=== PATIENT | male | born 1950 | race Caucasian/White ===

== ENCOUNTER 2019-06-27 20:03 | Inpatient (IN) ==
[2019-06-27] MEDS ORDERED: ONDANSETRON 4 MG/2 ML VIAL IV STA (20:29)
[2019-06-27] MEDS ORDERED: methylPREDNISolone SOD SUC 125 MG/2 ML VIAL IV STA (20:29)
[2019-06-27] MEDS ORDERED: VANCOMYCIN INJ 1,250 MG in SODIUM CHLORIDE 0.9% 250 ML IV STA (20:29)
[2019-06-27] MEDS ORDERED: ALBUTEROL 2.5 MG/3 ML NEB RESP TX SCH (20:30)
[2019-06-27 20:52] LABS: Basophils # 0.1 10*3/uL (0.0-0.2); Basophils % 0.6 % (0.0-0.8); Eosinophils # 0.1 10*3/uL (0.0-0.87); Hematocrit 36.8 VOL% (42.0-52.0); Hemoglobin 12.5 GM/DL (14.0-18.0); Immature Granulocytes % 3.4 %; Immature Granulocytes Absolute 0.45 #; Lymphocytes # 1.3 10*3/uL (1.4-4.0); Lymphocytes % 9.9 % (21.2-54.2); Mean Corpuscular Volume 88.5 FL (87-102); Mean Platelet Volume 9.7 FL (9.6-12.0); Neutrophils % 74.1 % (38.7-73.9); Platelet Count 360 T/CUMM (130-400); Red Blood Count 4.16 MC/CUMM (3.8-5.5); Red Cell Distribution Width 13.6 % (9.3-17.3); White Blood Count 13.4 T/CUMM (4-12)
[2019-06-27 21:04] LABS: INR 1.1; Partial Thromboplastin Time 27.9 SECS (20.8-36.0)
[2019-06-27 21:22] LABS: Albumin 1.8 G/DL (3.4-5.0); Bilirubin,Total 1.4 MG/DL (0.2-1.0); Calcium 8.2 MG/DL (8.5-10.1); Osmolality,Calculated 248.6 MOS/KG (273-304); Total Protein 5.1 G/DL (6.4-8.3); Troponin I < 0.015 NG/ML (0.00-0.045)
[2019-06-27 22:06] LABS: Apearance,Urine CLEAR (Clear); Bacteria,Urine Occasional /HPF (Few); Bilirubin,Urine Negative (Negative); Blood, Urine Negative (Negative); Glucose,Urine (UA) Negative (Negative); Ketones,Urine Negative (Negative); Nitrite,Urine Negative (Negative); Protein,Urine Negative; RBC,Urine 3 /HPF (0-4); Urine Color Yellow (Yellow); Urine Specific Gravity 1.009 (1.001-1.035); WBC,Urine 4 /HPF (0-6)
[2019-06-27] MEDS ORDERED: NICOTINE 21 MG/24 HR PATCH TRANSDERM PRN (22:10)
[2019-06-27] MEDS ORDERED: ACETAMINOPHEN 325 MG TABLET PO PRN (22:10)
[2019-06-27] MEDS ORDERED: BISACODYL 5 MG TABLET PO PRN (22:10)
[2019-06-27] MEDS ORDERED: MORPHINE 4 MG/1 ML VIAL IV PRN (22:10)
[2019-06-27] MEDS ORDERED: ONDANSETRON 4 MG/2 ML VIAL IV PRN (22:10)
[2019-06-27] MEDS ORDERED: INFLUENZA VIRUS VACCINE 0.5 ML SYRINGE IM ONE (23:46)
[2019-06-27] MEDS ORDERED: PNEUMOCOCCAL VACCINE (13 VALENT) 0.5 ML SYRINGE IM ONE (23:52)
[2019-06-28] MEDS: SODIUM CHLORIDE 0.9% 1,000 ML IV SCH ×3 (00:26→18:52)
[2019-06-28] MEDS: AZITHROMYCIN INJ 500 MG in SODIUM CHLORIDE 0.9% 250 ML IV SCH ×2 (00:27→23:58)
[2019-06-28] MEDS: ALBUTEROL/IPRATROPIUM 3 ML NEB RESP TX SCH ×4 (01:32→19:35)
[2019-06-28] MEDS: MEROPENEM 500 MG in SODIUM CHLORIDE 0.9% 100 ML IV SCH ×4 (02:07→20:14)
[2019-06-28 05:24] LABS: Albumin 1.8 G/DL (3.4-5.0); Bilirubin,Total 1.3 MG/DL (0.2-1.0); Osmolality,Calculated 263.7 MOS/KG (273-304)
[2019-06-28] MEDS: METOPROLOL TARTRATE 50 MG TABLET PO SCH ×3 (09:07→21:27)
[2019-06-28] MEDS: VALSARTAN/HCTZ 160-12.5 MG TABLET PO SCH ×2 (09:07→13:36)
[2019-06-28] MEDS: PANTOPRAZOLE 40 MG TABLET PO SCH (09:07)
[2019-06-28] MEDS: VANCOMYCIN INJ 1,500 MG in SODIUM CHLORIDE 0.9% 500 ML IV SCH ×2 (09:13→21:05)
[2019-06-28] MEDS: methylPREDNISolone SOD SUC 40 MG/1 ML VIAL IV SCH ×2 (12:15→20:11)
[2019-06-28] MEDS: BACLOFEN 10 MG TABLET PO PRN (17:18)
[2019-06-28] MEDS ORDERED: chlorproMAZINE 25 MG TABLET PO ONE (22:02)
[2019-06-29] MEDS: ALBUTEROL/IPRATROPIUM 3 ML NEB RESP TX SCH ×5 (00:42→19:32)
[2019-06-29] MEDS: methylPREDNISolone SOD SUC 40 MG/1 ML VIAL IV SCH ×4 (02:29→23:15)
[2019-06-29] MEDS: MEROPENEM 500 MG in SODIUM CHLORIDE 0.9% 100 ML IV SCH ×4 (02:31→21:37)
[2019-06-29] MEDS: SODIUM CHLORIDE 0.9% 1,000 ML IV SCH (03:08)
[2019-06-29] MEDS ORDERED: chlorproMAZINE 25 MG TABLET PO PRN (08:25)
[2019-06-29] MEDS: PANTOPRAZOLE 40 MG TABLET PO SCH (09:01)
[2019-06-29] MEDS: VALSARTAN/HCTZ 160-12.5 MG TABLET PO SCH (09:01)
[2019-06-29] MEDS: METOPROLOL TARTRATE 50 MG TABLET PO SCH ×2 (09:01→21:37)
[2019-06-29] MEDS ORDERED: FUROSEMIDE 40 MG/4 ML VIAL IV ONE (11:05)
[2019-06-29] MEDS: VANCOMYCIN INJ 1,500 MG in SODIUM CHLORIDE 0.9% 500 ML IV SCH ×2 (13:13→21:08)
[2019-06-29] MEDS ORDERED: methylPREDNISolone SOD SUC 40 MG/1 ML VIAL IV SCH (15:00)
[2019-06-30] MEDS: AZITHROMYCIN INJ 500 MG in SODIUM CHLORIDE 0.9% 250 ML IV SCH (00:53)
[2019-06-30] MEDS: ALBUTEROL/IPRATROPIUM 3 ML NEB RESP TX SCH ×6 (03:01→23:00)
[2019-06-30] MEDS: MEROPENEM 500 MG in SODIUM CHLORIDE 0.9% 100 ML IV SCH ×4 (03:08→21:23)
[2019-06-30] MEDS: methylPREDNISolone SOD SUC 40 MG/1 ML VIAL IV SCH ×4 (05:50→23:33)
[2019-06-30 07:41] LABS: Calcium 8.9 MG/DL (8.5-10.1); Osmolality,Calculated 268.2 MOS/KG (273-304)
[2019-06-30] MEDS: SODIUM CHLORIDE 0.9% 1,000 ML IV SCH (08:26)
[2019-06-30] MEDS: VANCOMYCIN INJ 1,500 MG in SODIUM CHLORIDE 0.9% 500 ML IV SCH (08:53)
[2019-06-30] MEDS: VALSARTAN/HCTZ 160-12.5 MG TABLET PO SCH (08:59)
[2019-06-30] MEDS: METOPROLOL TARTRATE 50 MG TABLET PO SCH ×2 (08:59→21:24)
[2019-06-30] MEDS: PANTOPRAZOLE 40 MG TABLET PO SCH (08:59)
[2019-06-30] MEDS: chlorproMAZINE 25 MG TABLET PO PRN (18:14)
[2019-07-01] MEDS: AZITHROMYCIN INJ 500 MG in SODIUM CHLORIDE 0.9% 250 ML IV SCH ×2 (02:28→03:30)
[2019-07-01] MEDS: ALBUTEROL/IPRATROPIUM 3 ML NEB RESP TX SCH ×5 (03:00→20:38)
[2019-07-01] MEDS: MEROPENEM 500 MG in SODIUM CHLORIDE 0.9% 100 ML IV SCH ×4 (03:31→21:16)
[2019-07-01] MEDS: VANCOMYCIN INJ 1,500 MG in SODIUM CHLORIDE 0.9% 500 ML IV SCH ×2 (04:07→22:05)
[2019-07-01] MEDS: methylPREDNISolone SOD SUC 40 MG/1 ML VIAL IV SCH ×4 (05:17→23:45)
[2019-07-01] MEDS: METOPROLOL TARTRATE 50 MG TABLET PO SCH ×2 (08:08→21:20)
[2019-07-01] MEDS: PANTOPRAZOLE 40 MG TABLET PO SCH (08:08)
[2019-07-01] MEDS: VALSARTAN/HCTZ 160-12.5 MG TABLET PO SCH (08:08)
[2019-07-01] MEDS: chlorproMAZINE 25 MG TABLET PO PRN ×2 (08:28→22:05)
[2019-07-01] MEDS: GABAPENTIN 300 MG CAPSULE PO SCH ×2 (10:22→21:20)
[2019-07-02] MEDS: ALBUTEROL/IPRATROPIUM 3 ML NEB RESP TX SCH ×4 (00:58→11:02)
[2019-07-02] MEDS: AZITHROMYCIN INJ 500 MG in SODIUM CHLORIDE 0.9% 250 ML IV SCH (01:51)
[2019-07-02] MEDS: MEROPENEM 500 MG in SODIUM CHLORIDE 0.9% 100 ML IV SCH ×2 (04:00→08:35)
[2019-07-02] MEDS: methylPREDNISolone SOD SUC 40 MG/1 ML VIAL IV SCH (04:40)
[2019-07-02 05:16] LABS: Albumin 1.8 G/DL (3.4-5.0); Bilirubin,Total 1.3 MG/DL (0.2-1.0); Calcium 8.7 MG/DL (8.5-10.1); Osmolality,Calculated 268.4 MOS/KG (273-304); Total Protein 5.2 G/DL (6.4-8.3)
[2019-07-02] MEDS: VALSARTAN/HCTZ 160-12.5 MG TABLET PO SCH (08:25)
[2019-07-02] MEDS: GABAPENTIN 300 MG CAPSULE PO SCH (08:25)
[2019-07-02] MEDS: PANTOPRAZOLE 40 MG TABLET PO SCH (08:26)
[2019-07-02] MEDS: METOPROLOL TARTRATE 50 MG TABLET PO SCH (08:26)
[2019-07-02] MEDS: BACLOFEN 10 MG TABLET PO PRN (08:26)
[2019-07-02] MEDS: chlorproMAZINE 25 MG TABLET PO PRN (08:26)
[2019-07-02 11:50] VITALS: BP 134/73
== END 2019-07-02 14:37 | disposition home health service (06) | DRG 193 ==
LOC: N.ED 20:03 → N.EDINP 22:10 → SUATTDRO 22:10 → N.4E 22:50
PROVIDERS: ADMIT Internal Medicine; ATTEND Internal Medicine

== ENCOUNTER 2019-07-19 23:40 | Inpatient (IN) ==
[2019-07-20] MEDS ORDERED: SODIUM CHLORIDE 0.9% 500 ML IV STA (00:35)
[2019-07-20 01:36] LABS: Basophils % 1.2 % (0.0-0.8); Eosinophils % 1.2 % (0.00-10.9); Hematocrit 31.8 VOL% (42.0-52.0); Hemoglobin 11.1 GM/DL (14.0-18.0); Lymphocytes # 1.1 10*3/uL (1.4-4.0); Lymphocytes % 63.6 % (21.2-54.2); Mean Corpuscular HGB Conc 34.9 GM/DL (32-36); Mean Corpuscular Volume 85.3 FL (87-102); Mean Platelet Volume 9.9 FL (9.6-12.0); Monocytes % 9.8 % (1.7-12.7); Neutrophils % 24.2 % (38.7-73.9); Platelet Count 62 T/CUMM (130-400); Red Blood Count 3.73 MC/CUMM (3.8-5.5); Red Cell Distribution Width 13.9 % (9.3-17.3); White Blood Count 1.7 T/CUMM (4-12)
[2019-07-20 01:47] LABS: INR 0.9; PT Patient Result 9.8 SECS (9.6-12.2)
[2019-07-20 02:03] LABS: Albumin 2.6 G/DL (3.4-5.0); Bilirubin,Total 0.5 MG/DL (0.2-1.0); Calcium 8.5 MG/DL (8.5-10.1); Osmolality,Calculated 244.9 MOS/KG (273-304); Total Protein 5.9 G/DL (6.4-8.3)
[2019-07-20 02:33] LABS: Apearance,Urine CLEAR (Clear); Bacteria,Urine Occasional /HPF (Few); Bilirubin,Urine Negative (Negative); Blood, Urine Negative (Negative); Glucose,Urine (UA) Negative (Negative); Ketones,Urine Negative (Negative); Nitrite,Urine Negative (Negative); Protein,Urine Negative; Urine Color Yellow (Yellow); Urine Specific Gravity 1.005 (1.001-1.035); Urine Urobilinogen < 2.0 EU/DL (0.2-1.0); WBC,Urine <1 /HPF (0-6)
[2019-07-20 04:27] LABS: Anisocytosis 1+; Band Neutrophils 1 % (0-10); Eosinophils 1 % (0-10); Lymphocytes 67 % (20-55); Segmented Neutrophils 27 % (50-85); Total Cells Counted 100
[2019-07-20 04:28] LABS: Platelet Estimate Decreased
[2019-07-20] MEDS ORDERED: ONDANSETRON 4 MG/2 ML VIAL IV PRN (05:17)
[2019-07-20] MEDS ORDERED: ACETAMINOPHEN 325 MG TABLET PO PRN (05:17)
[2019-07-20] MEDS ORDERED: ONDANSETRON 4 MG TABLET PO PRN (05:17)
[2019-07-20] MEDS ORDERED: MAGNESIUM SULF RIDER 4 GM in PREMIX 1 EACH IV PRN (05:18)
[2019-07-20] MEDS: SODIUM CHLORIDE 0.9% 1,000 ML IV SCH ×3 (06:02→20:28)
[2019-07-20 08:54] LABS: Risk Ratio 3.13; Thyroid Stimulating Hormone 1.02 uIU/ml (0.358-3.74); VLDL CHOLESTEROL 14.4 MG/DL
[2019-07-20] MEDS ORDERED: MAGNESIUM OXIDE 400 MG TABLET PO SCH (09:00)
[2019-07-20] MEDS: METOPROLOL TARTRATE 50 MG TABLET PO SCH ×3 (09:02→17:06)
[2019-07-20] MEDS: PANTOPRAZOLE 40 MG TABLET PO SCH (09:03)
[2019-07-20] MEDS: GABAPENTIN 300 MG CAPSULE PO SCH ×2 (09:03→20:24)
[2019-07-20] MEDS: MAGNESIUM SULF RIDER 2 GM in PREMIX 1 EACH IV PRN (09:25)
[2019-07-20] MEDS: POTASSIUM CHLORIDE 20 MEQ TABLET PO PRN ×3 (09:25→13:24)
[2019-07-20] MEDS ORDERED: PHENOL 1.4% THROAT SPRAY 177 ML BOTTLE PO PRN (19:24)
[2019-07-21] MEDS: SODIUM CHLORIDE 0.9% 1,000 ML IV SCH ×3 (04:30→23:58)
[2019-07-21 06:06] LABS: Basophils % 0.9 % (0.0-0.8); Eosinophils # 0.1 10*3/uL (0.0-0.87); Eosinophils % 2.1 % (0.00-10.9); Hematocrit 29.4 VOL% (42.0-52.0); Hemoglobin 10.1 GM/DL (14.0-18.0); Immature Granulocytes % 0.4 %; Immature Granulocytes Absolute 0.01 #; Lymphocytes # 1.4 10*3/uL (1.4-4.0); Lymphocytes % 60.5 % (21.2-54.2); Mean Corpuscular HGB Conc 34.4 GM/DL (32-36); Mean Platelet Volume 9.2 FL (9.6-12.0); Neutrophils % 24.1 % (38.7-73.9); Platelet Count 49 T/CUMM (130-400); Red Blood Count 3.42 MC/CUMM (3.8-5.5); Red Cell Distribution Width 14.4 % (9.3-17.3); White Blood Count 2.3 T/CUMM (4-12)
[2019-07-21 06:31] LABS: Anisocytosis 1+; Calcium 8.1 MG/DL (8.5-10.1); Lymphocytes 59 % (20-55); Osmolality,Calculated 254.1 MOS/KG (273-304); Segmented Neutrophils 30 % (50-85); Total Cells Counted 100
[2019-07-21 06:32] LABS: Platelet Estimate Decreased
[2019-07-21] MEDS: METOPROLOL TARTRATE 50 MG TABLET PO SCH ×2 (09:50→16:10)
[2019-07-21] MEDS: GABAPENTIN 300 MG CAPSULE PO SCH ×2 (09:50→21:08)
[2019-07-21] MEDS: MAGNESIUM OXIDE 400 MG TABLET PO SCH ×2 (09:50→21:08)
[2019-07-21] MEDS: PANTOPRAZOLE 40 MG TABLET PO SCH (09:50)
[2019-07-21] MEDS: MAGNESIUM SULF RIDER 2 GM in PREMIX 1 EACH IV PRN (11:20)
[2019-07-21 14:33] LABS: Calcium 7.9 MG/DL (8.5-10.1); Osmolality,Calculated 256.9 MOS/KG (273-304)
[2019-07-22 07:18] LABS: Calcium 7.7 MG/DL (8.5-10.1); Osmolality,Calculated 253.1 MOS/KG (273-304)
[2019-07-22 07:53] LABS: Basophils % 0.8 % (0.0-0.8); Eosinophils # 0.1 10*3/uL (0.0-0.87); Eosinophils % 1.7 % (0.00-10.9); Hematocrit 28.9 VOL% (42.0-52.0); Hemoglobin 9.8 GM/DL (14.0-18.0); Immature Granulocytes % 1.4 %; Immature Granulocytes Absolute 0.05 #; Lymphocytes # 1.9 10*3/uL (1.4-4.0); Lymphocytes % 51.4 % (21.2-54.2); Mean Corpuscular HGB Conc 33.9 GM/DL (32-36); Mean Corpuscular Volume 87.3 FL (87-102); Mean Platelet Volume 10.8 FL (9.6-12.0); Monocytes % 12.4 % (1.7-12.7); Neutrophils % 32.3 % (38.7-73.9); Platelet Count 57 T/CUMM (130-400); Red Blood Count 3.31 MC/CUMM (3.8-5.5); Red Cell Distribution Width 14.2 % (9.3-17.3); White Blood Count 3.6 T/CUMM (4-12)
[2019-07-22] MEDS: SODIUM CHLORIDE 0.9% 1,000 ML IV SCH (07:58)
[2019-07-22 08:31] LABS: Anisocytosis 1+; Band Neutrophils 13 % (0-10); Basophilic Stippling Slight; Eosinophils 2 % (0-10); Lymphocytes 49 % (20-55); Platelet Estimate Decreased; Segmented Neutrophils 25 % (50-85); Smudge Cells Few; Total Cells Counted 100
[2019-07-22 08:32] LABS: Macrocytosis Slight; Poikilocytosis Slight
[2019-07-22] MEDS: METOPROLOL TARTRATE 50 MG TABLET PO SCH ×2 (09:08→18:10)
[2019-07-22] MEDS: PANTOPRAZOLE 40 MG TABLET PO SCH (09:10)
[2019-07-22] MEDS: MAGNESIUM OXIDE 400 MG TABLET PO SCH ×2 (09:10→21:41)
[2019-07-22] MEDS: GABAPENTIN 300 MG CAPSULE PO SCH ×2 (09:10→21:40)
[2019-07-22] MEDS: POTASSIUM CHLORIDE 20 MEQ TABLET PO PRN (09:11)
[2019-07-22] MEDS: LEVOFLOXACIN INJ 500 MG in PREMIX 1 EACH IV SCH (09:13)
[2019-07-22 10:30] LABS: Apearance,Urine CLEAR (Clear); Bilirubin,Urine Negative (Negative); Blood, Urine Negative (Negative); Glucose,Urine (UA) Negative (Negative); Ketones,Urine Negative (Negative); Mucus,Urine Occasional /LPF (Occasional); Nitrite,Urine Negative (Negative); Protein,Urine Negative; RBC,Urine 2 /HPF (0-4); Urine Color Straw (Yellow); Urine Specific Gravity 1.003 (1.001-1.035); Urine Urobilinogen < 2.0 EU/DL (0.2-1.0)
[2019-07-22 15:24] LABS: Calcium 8.2 MG/DL (8.5-10.1); Osmolality,Calculated 256.1 MOS/KG (273-304)
[2019-07-22 21:18] LABS: Barbiturates Screen,Urine Negative (Negative); Benzodiazepines Screen,Urine Negative (Negative); Cannabinoid Screen,Urine Negative (Negative); Opiate Screen,Urine Negative (Negative); Phencyclidine Screen,Urine Negative (Negative)
[2019-07-22] MEDS ORDERED: MELATONIN 3 MG TABLET PO PRN (22:13)
[2019-07-23 05:19] LABS: Basophils % 0.7 % (0.0-0.8); Eosinophils # 0.1 10*3/uL (0.0-0.87); Eosinophils % 1.6 % (0.00-10.9); Hematocrit 29.8 VOL% (42.0-52.0); Hemoglobin 10.2 GM/DL (14.0-18.0); Immature Granulocytes % 2.4 %; Immature Granulocytes Absolute 0.11 #; Lymphocytes # 2.3 10*3/uL (1.4-4.0); Lymphocytes % 51.4 % (21.2-54.2); Mean Corpuscular HGB Conc 34.2 GM/DL (32-36); Mean Corpuscular Volume 86.6 FL (87-102); Mean Platelet Volume 11.7 FL (9.6-12.0); Monocytes % 12.4 % (1.7-12.7); Neutrophils % 31.5 % (38.7-73.9); Platelet Count 69 T/CUMM (130-400); Red Blood Count 3.44 MC/CUMM (3.8-5.5); Red Cell Distribution Width 14.6 % (9.3-17.3); White Blood Count 4.5 T/CUMM (4-12)
[2019-07-23 05:44] LABS: Osmolality,Calculated 256.8 MOS/KG (273-304)
[2019-07-23 05:57] LABS: Atypical Lymphocytes Few; Band Neutrophils 1 % (0-10); Eosinophils 1 % (0-10); Hypochromasia 1+; Lymphocytes 58 % (20-55); Microcytosis Slight; Platelet Satellitism Few; Promyelocytes 1 %; Segmented Neutrophils 27 % (50-85); Total Cells Counted 100
[2019-07-23] MEDS: POTASSIUM CHLORIDE 20 MEQ TABLET PO PRN (06:30)
[2019-07-23] MEDS: MAGNESIUM SULF RIDER 2 GM in PREMIX 1 EACH IV PRN (06:30)
[2019-07-23] MEDS: LEVOFLOXACIN INJ 500 MG in PREMIX 1 EACH IV SCH (10:17)
[2019-07-23] MEDS: PANTOPRAZOLE 40 MG TABLET PO SCH (10:22)
[2019-07-23] MEDS: GABAPENTIN 300 MG CAPSULE PO SCH (10:22)
[2019-07-23] MEDS: MAGNESIUM OXIDE 400 MG TABLET PO SCH (10:22)
[2019-07-23] MEDS: METOPROLOL TARTRATE 50 MG TABLET PO SCH (10:23)
[2019-07-23 13:11] VITALS: BP 98/58
[2019-07-24] MEDS ORDERED: LEVOFLOXACIN 500 MG TABLET PO SCH (09:00)
== END 2019-07-23 13:26 | disposition home or self-care (01) | DRG 312 ==
LOC: EDUNIT# → EDBD → N.ED 23:40 → N.EDINP 23:40 → N.TELEN 07-20 05:15 → SUATTDRO 07-20 08:59
PROVIDERS: ADMIT Internal Medicine; ATTEND Internal Medicine

== ENCOUNTER 2020-03-07 06:56 | Inpatient (IN) ==
[2020-03-03 11:22] LABS: Basophils # 0.1 10*3/uL (0.0-0.2); Basophils % 0.6 % (0.0-0.8); Eosinophils # 0.3 10*3/uL (0.0-0.87); Eosinophils % 3.6 % (0.00-10.9); Hematocrit 45.7 VOL% (42.0-52.0); Hemoglobin 15.1 GM/DL (14.0-18.0); Immature Granulocytes % 0.7 %; Immature Granulocytes Absolute 0.06 #; Lymphocytes # 1.5 10*3/uL (1.4-4.0); Lymphocytes % 18.4 % (21.2-54.2); Mean Corpuscular Volume 94.2 FL (87-102); Mean Platelet Volume 10.7 FL (9.6-12.0); Monocytes % 12.7 % (1.7-12.7); Platelet Count 179 T/CUMM (130-400); Red Blood Count 4.85 MC/CUMM (3.8-5.5); Red Cell Distribution Width 13.1 % (9.3-17.3); White Blood Count 8.4 T/CUMM (4-12)
[2020-03-03 11:40] LABS: Calcium 9.4 MG/DL (8.5-10.1); Osmolality,Calculated 261.5 MOS/KG (273-304)
[~2020-03-07 06:56] MED LIST: ACETAMINOPHEN 500 MG TABLET ONE; ACETAMINOPHEN 500 MG TABLET PO ONE; ALVIMOPAN 12 MG CAPSULE ONE; ALVIMOPAN 12 MG CAPSULE PO ONE; DIAZEPAM 5 MG TABLET ONE; DIAZEPAM 5 MG TABLET PO ONE; ERTAPENEM 1,000 MG VIAL ONE; ERTAPENEM 1,000 MG in SODIUM CHLORIDE 0.9% 100 ML IV ONE; FAMOTIDINE 20 MG TABLET ONE; FAMOTIDINE 20 MG TABLET PO ONE; GABAPENTIN 400 MG CAPSULE ONE; GABAPENTIN 400 MG CAPSULE PO ONE; LACTATED RINGERS 1,000 ML IV SCH
[2020-03-07] MEDS ORDERED: BUPIVACAINE MPF 0.5% /EPI 30 ML VIAL ONE (07:45)
[2020-03-07] MEDS ORDERED: MIDAZOLAM 2 MG/2 ML VIAL ONE (07:46)
[2020-03-07] MEDS ORDERED: DEXMEDETOMIDINE 200 MCG/2 ML VIAL ONE (07:46)
[2020-03-07] MEDS ORDERED: DEXAMETHASONE 4 MG/1 ML VIAL ONE (07:46)
[2020-03-07] MEDS ORDERED: LIDOCAINE 1% 5 ML VIAL ONE (07:47)
[2020-03-07] MEDS ORDERED: ALBUTEROL 2.5 MG/3 ML NEB RESP TX ONE (10:09)
[2020-03-07] MEDS ORDERED: ALBUMIN 5% 12.5 GM/250 ML VIAL IV ONE (10:10)
[2020-03-07] MEDS ORDERED: INDOCYANINE GREEN 25 MG VIAL IV ONE (10:35)
[2020-03-07] MEDS ORDERED: TISSUE ADHESIVE 1 EACH APPLICATOR TOP ONE (12:20)
[2020-03-07] MEDS ORDERED: fentaNYL 100 MCG/2 ML VIAL ONE (13:03)
[2020-03-07] MEDS ORDERED: LIDOCAINE 2% 5 ML VIAL ONE (13:03)
[2020-03-07] MEDS ORDERED: SEVOFLURANE 1 UNIT/15 MINUTE INH ONE (13:03)
[2020-03-07] MEDS ORDERED: propofoL 200 MG/20 ML VIAL IV ONE (13:03)
[2020-03-07] MEDS ORDERED: GLYCOPYRROLATE 0.4 MG/2 ML VIAL ONE (13:03)
[2020-03-07] MEDS ORDERED: ePHEDrine 50 MG/ML VIAL ONE (13:03)
[2020-03-07] MEDS ORDERED: ONDANSETRON 4 MG/2 ML VIAL ONE (13:03)
[2020-03-07] MEDS ORDERED: SODIUM CHLORIDE 0.9% 100 ML IV ONE (13:04)
[2020-03-07] MEDS ORDERED: NEOSTIGMINE 10 MG/10 ML VIAL ONE (13:04)
[2020-03-07] MEDS ORDERED: ROCURONIUM 100 MG/10 ML VIAL IV ONE (13:04)
[2020-03-07] MEDS ORDERED: SODIUM CHLORIDE 0.9% 1,000 ML IV ONE (13:04)
[2020-03-07] MEDS ORDERED: HYDROmorphone 2 MG/1 ML VIAL IV PRN (14:02)
[2020-03-07] MEDS ORDERED: ONDANSETRON 4 MG/2 ML VIAL IV PRN (14:02)
[2020-03-07 14:33] LABS: Basophils % 0.3 % (0.0-0.8); Eosinophils % 0.2 % (0.00-10.9); Hematocrit 46.4 VOL% (42.0-52.0); Immature Granulocytes % 0.6 %; Immature Granulocytes Absolute 0.05 #; Lymphocytes # 0.6 10*3/uL (1.4-4.0); Lymphocytes % 7.4 % (21.2-54.2); Mean Corpuscular HGB Conc 32.3 GM/DL (32-36); Mean Corpuscular Volume 97.1 FL (87-102); Mean Platelet Volume 9.8 FL (9.6-12.0); Monocytes % 2.4 % (1.7-12.7); Neutrophils % 89.1 % (38.7-73.9); Platelet Count 154 T/CUMM (130-400); Red Blood Count 4.78 MC/CUMM (3.8-5.5); White Blood Count 8.7 T/CUMM (4-12)
[2020-03-07 14:39] LABS: Calcium 8.6 MG/DL (8.5-10.1); Osmolality,Calculated 272.1 MOS/KG (273-304)
[2020-03-07] MEDS: KETOROLAC 30 MG/1 ML VIAL IV SCH ×2 (15:04→20:00)
[2020-03-07] MEDS: LACTATED RINGERS 1,000 ML IV SCH (17:01)
[2020-03-07] MEDS: ALVIMOPAN 12 MG CAPSULE PO SCH (20:07)
[2020-03-07] MEDS: GABAPENTIN 300 MG CAPSULE PO SCH (20:07)
[2020-03-07] MEDS: METOPROLOL TARTRATE 50 MG TABLET PO SCH (20:07)
[2020-03-08] MEDS: LACTATED RINGERS 1,000 ML IV SCH ×2 (01:02→09:27)
[2020-03-08] MEDS: KETOROLAC 30 MG/1 ML VIAL IV SCH ×2 (03:39→08:00)
[2020-03-08] MEDS ORDERED: ENOXAPARIN 40 MG/0.4 ML SYRINGE SUBCUT SCH (06:00)
[2020-03-08 06:11] LABS: Basophils % 0.2 % (0.0-0.8); Hemoglobin 12.8 GM/DL (14.0-18.0); Immature Granulocytes % 0.5 %; Immature Granulocytes Absolute 0.07 #; Lymphocytes # 1.1 10*3/uL (1.4-4.0); Lymphocytes % 7.5 % (21.2-54.2); Mean Corpuscular HGB Conc 33.7 GM/DL (32-36); Mean Corpuscular Volume 93.1 FL (87-102); Mean Platelet Volume 10.3 FL (9.6-12.0); Monocytes % 9.6 % (1.7-12.7); Neutrophils % 82.2 % (38.7-73.9); Platelet Count 160 T/CUMM (130-400); Red Blood Count 4.08 MC/CUMM (3.8-5.5); Red Cell Distribution Width 13.1 % (9.3-17.3); White Blood Count 14.3 T/CUMM (4-12)
[2020-03-08 06:35] LABS: Calcium 8.7 MG/DL (8.5-10.1); Osmolality,Calculated 269.2 MOS/KG (273-304)
[2020-03-08] MEDS: ALVIMOPAN 12 MG CAPSULE PO SCH (08:00)
[2020-03-08] MEDS: GABAPENTIN 300 MG CAPSULE PO SCH (08:00)
[2020-03-08] MEDS: METOPROLOL TARTRATE 50 MG TABLET PO SCH (08:01)
[2020-03-08] MEDS ORDERED: MULTIVITAMIN (CENTRUM) TABLET PO SCH (09:00)
[2020-03-08] MEDS ORDERED: MULTIVITAMIN (BEROCCA) TABLET PO SCH (09:00)
[2020-03-08] MEDS ORDERED: MAGNESIUM OXIDE 400 MG TABLET PO SCH (09:00)
[2020-03-08] MEDS ORDERED: PANTOPRAZOLE 40 MG TABLET PO SCH (09:00)
[2020-03-08 12:36] LABS: Hematocrit 38.4 VOL% (42.0-52.0); Hemoglobin 12.9 GM/DL (14.0-18.0)
[2020-03-08 12:47] VITALS: BP 122/61
== END 2020-03-08 12:56 | disposition home or self-care (01) | DRG 331 ==
LOC: N.OR 06:56 → N.SDSINP 06:57 → EDSDCBED 13:52 → N.SDSINP 13:52 → N.3E 13:52 → N.OR 03-08 12:56 → UNDODEPSDC 03-11 11:19
PROVIDERS: ADMIT Surgery; ATTEND Surgery

== ENCOUNTER 2020-03-09 05:17 | Inpatient (IN) ==
[2020-03-09] MEDS ORDERED: MORPHINE 4 MG/1 ML VIAL IV ONE (06:18)
[2020-03-09] MEDS ORDERED: ONDANSETRON 4 MG/2 ML VIAL IV ONE ×2 (06:18→07:49)
[2020-03-09] MEDS ORDERED: SODIUM CHLORIDE 0.9% 1,000 ML IV STA (06:18)
[2020-03-09 06:24] LABS: Basophils # 0.1 10*3/uL (0.0-0.2); Basophils % 0.4 % (0.0-0.8); Eosinophils # 0.1 10*3/uL (0.0-0.87); Hematocrit 46.6 VOL% (42.0-52.0); Hemoglobin 15.5 GM/DL (14.0-18.0); Immature Granulocytes % 0.7 %; Lymphocytes # 1.3 10*3/uL (1.4-4.0); Lymphocytes % 9.2 % (21.2-54.2); Mean Corpuscular HGB Conc 33.3 GM/DL (32-36); Mean Corpuscular Volume 94.5 FL (87-102); Mean Platelet Volume 10.8 FL (9.6-12.0); Monocytes % 7.5 % (1.7-12.7); Neutrophils % 81.2 % (38.7-73.9); Platelet Count 195 T/CUMM (130-400); Red Blood Count 4.93 MC/CUMM (3.8-5.5); Red Cell Distribution Width 13.3 % (9.3-17.3); White Blood Count 14.3 T/CUMM (4-12)
[2020-03-09 06:32] LABS: PT Patient Result 10.3 SECS (9.8-11.9)
[2020-03-09 07:00] LABS: Albumin 3.6 G/DL (3.4-5.0); Bilirubin,Total 2.1 MG/DL (0.2-1.0); Calcium 9.6 MG/DL (8.5-10.1); Osmolality,Calculated 260.9 MOS/KG (273-304)
[2020-03-09 07:20] LABS: Apearance,Urine CLEAR (Clear); Bilirubin,Urine Negative (Negative); Blood, Urine Negative (Negative); Glucose,Urine (UA) Negative (Negative); Ketones,Urine Negative (Negative); Mucus,Urine Occasional /LPF (Occasional); Nitrite,Urine Negative (Negative); Protein,Urine 30 MG/DL; RBC,Urine 1 /HPF (0-4); Urine Color Amber (Yellow); Urine Specific Gravity 1.017 (1.001-1.035); WBC,Urine 1 /HPF (0-6)
[2020-03-09] MEDS ORDERED: ONDANSETRON 4 MG TABLET PO PRN (10:53)
[2020-03-09] MEDS ORDERED: ONDANSETRON 4 MG/2 ML VIAL IV PRN (10:53)
[2020-03-09] MEDS ORDERED: PROMETHAZINE 25 MG TABLET PO PRN (10:53)
[2020-03-09] MEDS ORDERED: chlorproMAZINE INJ 25 MG in SODIUM CHLORIDE 0.9% 100 ML IV PRN (10:53)
[2020-03-09] MEDS: KETOROLAC 15 MG/1 ML VIAL IV SCH ×2 (11:45→17:04)
[2020-03-09] MEDS: SODIUM CHLORIDE 0.9% 1,000 ML IV SCH ×2 (11:45→16:43)
[2020-03-09] MEDS: METOPROLOL TARTRATE 50 MG TABLET PO SCH ×2 (11:45→21:20)
[2020-03-09] MEDS: BACLOFEN 10 MG TABLET PO SCH ×2 (15:39→21:20)
[2020-03-09] MEDS: HYDROmorphone 2 MG/1 ML VIAL IV PRN (16:28)
[2020-03-09] MEDS: ALVIMOPAN 12 MG CAPSULE PO SCH (21:19)
[2020-03-09] MEDS: GABAPENTIN 300 MG CAPSULE PO SCH (21:20)
[2020-03-10] MEDS: KETOROLAC 15 MG/1 ML VIAL IV SCH ×4 (00:23→17:35)
[2020-03-10] MEDS: SODIUM CHLORIDE 0.9% 1,000 ML IV SCH ×2 (02:14→17:24)
[2020-03-10] MEDS: HYDROmorphone 2 MG/1 ML VIAL IV PRN ×2 (02:14→21:20)
[2020-03-10 05:09] LABS: Basophils % 0.4 % (0.0-0.8); Eosinophils # 0.1 10*3/uL (0.0-0.87); Eosinophils % 1.6 % (0.00-10.9); Hemoglobin 15.2 GM/DL (14.0-18.0); Immature Granulocytes % 0.6 %; Immature Granulocytes Absolute 0.05 #; Mean Corpuscular Volume 94.7 FL (87-102); Monocytes % 10.6 % (1.7-12.7); Neutrophils % 74.8 % (38.7-73.9); Platelet Count 184 T/CUMM (130-400); Red Blood Count 4.86 MC/CUMM (3.8-5.5); Red Cell Distribution Width 13.3 % (9.3-17.3); White Blood Count 8.5 T/CUMM (4-12)
[2020-03-10 05:33] LABS: Calcium 8.9 MG/DL (8.5-10.1)
[2020-03-10] MEDS: ENOXAPARIN 40 MG/0.4 ML SYRINGE SUBCUT SCH (05:39)
[2020-03-10] MEDS: MULTIVITAMIN (BEROCCA) TABLET PO SCH (08:56)
[2020-03-10] MEDS: BACLOFEN 10 MG TABLET PO SCH ×3 (08:56→21:20)
[2020-03-10] MEDS: MULTIVITAMIN (CENTRUM) TABLET PO SCH (08:56)
[2020-03-10] MEDS: GABAPENTIN 300 MG CAPSULE PO SCH ×2 (08:57→21:19)
[2020-03-10] MEDS: MAGNESIUM OXIDE 400 MG TABLET PO SCH (08:57)
[2020-03-10] MEDS: PANTOPRAZOLE 40 MG TABLET PO SCH (08:57)
[2020-03-10] MEDS: ALVIMOPAN 12 MG CAPSULE PO SCH ×2 (09:34→21:20)
[2020-03-10] MEDS: DEXT 5% NACL 0.45% KCL 40 MEQ 40 MEQ/1,000 ML BAG IV SCH ×2 (09:34→19:16)
[2020-03-10] MEDS: METOPROLOL TARTRATE 50 MG TABLET PO SCH ×2 (09:34→21:20)
[2020-03-10] MEDS ORDERED: PSEUDOEPHEDRINE 30 MG TABLET PO PRN (19:03)
[2020-03-10] MEDS ORDERED: OXYMETAZOLINE 0.05% NASAL SPRAY 15 ML BOTTLE BOTH NARES PRN (19:04)
[2020-03-11] MEDS: KETOROLAC 15 MG/1 ML VIAL IV SCH ×4 (00:05→17:19)
[2020-03-11] MEDS: ENOXAPARIN 40 MG/0.4 ML SYRINGE SUBCUT SCH (05:29)
[2020-03-11] MEDS: DEXT 5% NACL 0.45% KCL 40 MEQ 40 MEQ/1,000 ML BAG IV SCH ×2 (05:32→15:17)
[2020-03-11 06:24] LABS: Basophils % 0.5 % (0.0-0.8); Eosinophils # 0.2 10*3/uL (0.0-0.87); Eosinophils % 4.2 % (0.00-10.9); Hematocrit 45.6 VOL% (42.0-52.0); Immature Granulocytes % 1.1 %; Immature Granulocytes Absolute 0.06 #; Lymphocytes # 0.9 10*3/uL (1.4-4.0); Lymphocytes % 15.9 % (21.2-54.2); Mean Corpuscular HGB Conc 32.9 GM/DL (32-36); Mean Corpuscular Volume 94.6 FL (87-102); Mean Platelet Volume 9.9 FL (9.6-12.0); Monocytes % 14.5 % (1.7-12.7); Neutrophils % 63.8 % (38.7-73.9); Platelet Count 182 T/CUMM (130-400); Red Blood Count 4.82 MC/CUMM (3.8-5.5); Red Cell Distribution Width 13.4 % (9.3-17.3); White Blood Count 5.5 T/CUMM (4-12)
[2020-03-11 06:36] LABS: Calcium 9.3 MG/DL (8.5-10.1); Osmolality,Calculated 274.1 MOS/KG (273-304)
[2020-03-11] MEDS: PANTOPRAZOLE 40 MG TABLET PO SCH (09:50)
[2020-03-11] MEDS: MAGNESIUM OXIDE 400 MG TABLET PO SCH (09:50)
[2020-03-11] MEDS: MULTIVITAMIN (BEROCCA) TABLET PO SCH (09:50)
[2020-03-11] MEDS: ALVIMOPAN 12 MG CAPSULE PO SCH ×2 (09:50→21:39)
[2020-03-11] MEDS: BACLOFEN 10 MG TABLET PO SCH ×3 (09:50→21:39)
[2020-03-11] MEDS: MULTIVITAMIN (CENTRUM) TABLET PO SCH (09:50)
[2020-03-11] MEDS: METOPROLOL TARTRATE 50 MG TABLET PO SCH ×2 (09:50→21:39)
[2020-03-11] MEDS: GABAPENTIN 300 MG CAPSULE PO SCH ×2 (09:50→21:39)
[2020-03-12] MEDS: DEXT 5% NACL 0.45% KCL 40 MEQ 40 MEQ/1,000 ML BAG IV SCH (00:25)
[2020-03-12] MEDS: KETOROLAC 15 MG/1 ML VIAL IV SCH ×2 (00:26→05:46)
[2020-03-12] MEDS: ENOXAPARIN 40 MG/0.4 ML SYRINGE SUBCUT SCH (05:48)
[2020-03-12 08:27] VITALS: BP 120/62
[2020-03-12] MEDS: MULTIVITAMIN (CENTRUM) TABLET PO SCH (09:19)
[2020-03-12] MEDS: GABAPENTIN 300 MG CAPSULE PO SCH (09:20)
[2020-03-12] MEDS: BACLOFEN 10 MG TABLET PO SCH (09:20)
[2020-03-12] MEDS: PANTOPRAZOLE 40 MG TABLET PO SCH (09:20)
[2020-03-12] MEDS: MAGNESIUM OXIDE 400 MG TABLET PO SCH (09:20)
[2020-03-12] MEDS: MULTIVITAMIN (BEROCCA) TABLET PO SCH (09:20)
[2020-03-12] MEDS: METOPROLOL TARTRATE 50 MG TABLET PO SCH (09:20)
== END 2020-03-12 10:26 | disposition home or self-care (01) | DRG 394 ==
LOC: N.ED 05:17 → N.EDINP 09:11 → N.3E 09:35
PROVIDERS: ADMIT Surgery; ATTEND Surgery

== ENCOUNTER 2020-09-23 20:18 | Inpatient (IN) ==
[2020-09-23] MEDS ORDERED: NOREPINEPHRINE 4 MG/4 ML VIAL IV ONE ×2 (21:05→21:07)
[2020-09-23] MEDS ORDERED: SODIUM CHLORIDE 0.9% 1,000 ML IV STA ×2 (21:07→22:34)
[2020-09-23 21:20] LABS: Basophils # 0.1 10*3/uL (0.0-0.2); Basophils % 1.1 % (0.0-0.8); Hematocrit 47.5 VOL% (42.0-52.0); Hemoglobin 15.9 GM/DL (14.0-18.0); Immature Granulocytes % 6.8 %; Immature Granulocytes Absolute 0.36 #; Lymphocytes # 1.3 10*3/uL (1.4-4.0); Lymphocytes % 23.9 % (21.2-54.2); Mean Corpuscular HGB Conc 33.5 GM/DL (32-36); Mean Corpuscular Volume 93.1 FL (87-102); Mean Platelet Volume 9.6 FL (9.6-12.0); Monocytes % 4.9 % (1.7-12.7); NRBC # 0.42 10*3/uL; Neutrophils % 63.3 % (38.7-73.9); Platelet Count 103 T/CUMM (130-400); Red Cell Distribution Width 20.2 % (9.3-17.3); White Blood Count 5.3 T/CUMM (4-12)
[2020-09-23 21:27] LABS: Bacteria,Urine Occasional /HPF (Few); Bilirubin,Urine Negative (Negative); Blood, Urine Negative (Negative); Glucose,Urine (UA) Negative (Negative); Ketones,Urine Negative (Negative); Mucus,Urine Occasional /LPF (Occasional); Nitrite,Urine Negative (Negative); Protein,Urine Negative; Squamous Epithelial Cell,Urine Occasional /HPF (0-10); Urine Appearance CLEAR (Clear); Urine Color Yellow (Yellow); Urine Specific Gravity 1.018 (1.001-1.035); Urine Urobilinogen < 2.0 EU/DL (0.2-1.0)
[2020-09-23 21:32] LABS: Barbiturates Screen,Urine Negative (Negative); Benzodiazepines Screen,Urine Negative (Negative); Cannabinoid Screen,Urine Negative (Negative); Opiate Screen,Urine Negative (Negative); Phencyclidine Screen,Urine Negative (Negative)
[2020-09-23] MEDS ORDERED: PIPERACILLIN/TAZOBACTAM 3,375 MG in SODIUM CHLORIDE 0.9% 100 ML IV STA (21:32)
[2020-09-23 21:35] LABS: ABG Base Excess -0.1 MMOL/L (-2.5-2.5); ABG HCO3 21.5 MMOL/L (20-26); ABG Oxygen Saturation 93.2 % (95-100); ABG PH 7.503 (7.35-7.45); ABG PO2 62.9 MM HG (80-95); ABG TCO2 22.4 MMOL/L (23-27)
[2020-09-23] MEDS ORDERED: ACETAMINOPHEN 650 MG SUPP RECTAL STA (21:39)
[2020-09-23 21:40] LABS: Alanine Aminotransferase 73 U/L (16-61); Albumin 2.6 G/DL (3.4-5.0); Alkaline Phosphatase 95 U/L (45-117); Aspartate Amino Transferase 29 U/L (0-37); Blood Urea Nitrogen 40 MG/DL (7-18); Carbon Dioxide 26 MMOL/L (21-32); Estimated Glom Filtration Rate 65 ML/MIN; Glucose 98 MG/DL (74-106); Potassium 4.4 MMOL/L (3.5-5.1); Sodium 136 MMOL/L (136-145); Total Protein 5.9 G/DL (6.4-8.3); Troponin I 0.027 NG/ML (0.00-0.045)
[2020-09-23] MEDS ORDERED: MAGNESIUM SULF RIDER 2 GM in PREMIX 1 EACH IV STA (21:42)
[2020-09-23 21:53] LABS: Atypical Lymphocytes Few; Band Neutrophils 23 % (0-10); Lymphocytes 34 % (20-55); Metamyelocytes 3 %; Nucleated Red Blood Cells 16 (0-5); Platelet Estimate Adequate; Polychromasia 1+; Segmented Neutrophils 34 % (50-85); Total Cells Counted 100
[2020-09-23] MEDS: NOREPINEPHRINE 8 MG in SODIUM CHLORIDE 0.9% 242 ML IV PRN (22:45)
[2020-09-23] MEDS ORDERED: ONDANSETRON 4 MG/2 ML VIAL IV PRN (22:55)
[2020-09-23] MEDS ORDERED: ALBUTEROL 2.5 MG/3 ML NEB RESP TX PRN (22:55)
[2020-09-23] MEDS ORDERED: LEVOFLOXACIN INJ 500 MG in PREMIX 1 EACH IV SCH (23:30)
[2020-09-24] MEDS: SODIUM CHLORIDE 0.9% 1,000 ML IV SCH ×4 (00:35→23:03)
[2020-09-24 01:42] LABS: PT Patient Result 12.6 SECS (9.8-11.9)
[2020-09-24 05:26] LABS: Basophils % 0.5 % (0.0-0.8); Hematocrit 41.3 VOL% (42.0-52.0); Hemoglobin 13.6 GM/DL (14.0-18.0); Immature Granulocytes % 5.9 %; Immature Granulocytes Absolute 0.24 #; Lymphocytes % 24.6 % (21.2-54.2); Mean Corpuscular HGB Conc 32.9 GM/DL (32-36); Mean Corpuscular Volume 93.7 FL (87-102); Mean Platelet Volume 10.7 FL (9.6-12.0); Monocytes % 4.4 % (1.7-12.7); NRBC # 0.28 10*3/uL; Neutrophils % 64.6 % (38.7-73.9); Red Blood Count 4.41 MC/CUMM (3.8-5.5); Red Cell Distribution Width 20.6 % (9.3-17.3); White Blood Count 4.1 T/CUMM (4-12)
[2020-09-24 05:27] LABS: Platelet Count 89 T/CUMM (130-400)
[2020-09-24 05:38] LABS: Albumin 1.9 G/DL (3.4-5.0); Bilirubin,Total 1.5 MG/DL (0.2-1.0); Calcium 8.4 MG/DL (8.5-10.1); Osmolality,Calculated 282.7 MOS/KG (273-304); Total Protein 4.6 G/DL (6.4-8.3)
[2020-09-24 05:46] LABS: Band Neutrophils 12 % (0-10); Lymphocytes 24 % (20-55); Nucleated Red Blood Cells 14 (0-5); Platelet Estimate Decreased; Segmented Neutrophils 56 % (50-85); Total Cells Counted 100
[2020-09-24] MEDS ORDERED: NOREPINEPHRINE 4 MG/4 ML VIAL IV ONE (06:38)
[2020-09-24] MEDS: NOREPINEPHRINE 8 MG in SODIUM CHLORIDE 0.9% 242 ML IV PRN (06:46)
[2020-09-24] MEDS: ENOXAPARIN 40 MG/0.4 ML SYRINGE SUBCUT SCH (09:20)
[2020-09-24] MEDS: PANTOPRAZOLE 40 MG TABLET PO SCH (09:20)
[2020-09-24] MEDS: CEFEPIME 1,000 MG in SODIUM CHLORIDE 0.9% 100 ML IV SCH ×3 (09:20→21:00)
[2020-09-24] MEDS ORDERED: SODIUM CHLORIDE 0.9% 1,000 ML IV ONE (13:04)
[2020-09-24] MEDS: VANCOMYCIN INJ 1,500 MG in SODIUM CHLORIDE 0.9% 500 ML IV SCH (16:00)
[2020-09-24] MEDS: HYDROCORTISONE 100 MG VIAL IV SCH ×2 (16:00→20:58)
[2020-09-24] MEDS: ACETAMINOPHEN 325 MG/10.15 ML UDCUP PO PRN (22:39)
[2020-09-25] MEDS: SODIUM CHLORIDE 0.9% 1,000 ML IV SCH ×2 (00:21→06:11)
[2020-09-25] MEDS: CEFEPIME 1,000 MG in SODIUM CHLORIDE 0.9% 100 ML IV SCH ×4 (03:10→20:05)
[2020-09-25] MEDS: VANCOMYCIN INJ 1,500 MG in SODIUM CHLORIDE 0.9% 500 ML IV SCH (03:20)
[2020-09-25 04:19] LABS: Basophils % 0.5 % (0.0-0.8); Eosinophils % 0.3 % (0.00-10.9); Hematocrit 31.9 VOL% (42.0-52.0); Hemoglobin 10.5 GM/DL (14.0-18.0); Immature Granulocytes % 1.8 %; Immature Granulocytes Absolute 0.07 #; Lymphocytes # 0.4 10*3/uL (1.4-4.0); Mean Corpuscular HGB Conc 32.9 GM/DL (32-36); Mean Corpuscular Volume 93.5 FL (87-102); Mean Platelet Volume 9.3 FL (9.6-12.0); Monocytes % 4.5 % (1.7-12.7); NRBC # 0.02 10*3/uL; Neutrophils % 82.9 % (38.7-73.9); Platelet Count 57 T/CUMM (130-400); Red Blood Count 3.41 MC/CUMM (3.8-5.5); Red Cell Distribution Width 20.3 % (9.3-17.3); White Blood Count 3.8 T/CUMM (4-12)
[2020-09-25 04:37] LABS: Albumin 1.4 G/DL (3.4-5.0); Bilirubin,Total 1.1 MG/DL (0.2-1.0); Calcium 7.6 MG/DL (8.5-10.1); Osmolality,Calculated 283.3 MOS/KG (273-304); Potassium 3.2 MMOL/L (3.5-5.1); Total Protein 4.4 G/DL (6.4-8.3)
[2020-09-25] MEDS: HYDROCORTISONE 100 MG VIAL IV SCH ×3 (04:47→18:00)
[2020-09-25 04:48] LABS: Band Neutrophils 4 % (0-10); Hypochromasia Slight; Lymphocytes 13 % (20-55); Myelocytes 1 %; Nucleated Red Blood Cells 1 (0-5); Platelet Estimate Decreased; Segmented Neutrophils 77 % (50-85); Total Cells Counted 100
[2020-09-25] MEDS ORDERED: POTASSIUM CHLORIDE RIDER 10 MEQ in PREMIX 1 EACH IV PRN (06:33)
[2020-09-25] MEDS: POTASSIUM CHLORIDE 20 MEQ TABLET PO PRN ×6 (06:45→23:27)
[2020-09-25] MEDS: ENOXAPARIN 40 MG/0.4 ML SYRINGE SUBCUT SCH (08:37)
[2020-09-25] MEDS: PANTOPRAZOLE 40 MG TABLET PO SCH (08:37)
[2020-09-25] MEDS: METOPROLOL TARTRATE 25 MG TABLET PO SCH ×2 (10:31→20:05)
[2020-09-26] MEDS: HYDROCORTISONE 100 MG VIAL IV SCH ×2 (03:09→10:50)
[2020-09-26] MEDS: CEFEPIME 1,000 MG in SODIUM CHLORIDE 0.9% 100 ML IV SCH ×4 (03:15→20:32)
[2020-09-26] MEDS: POTASSIUM CHLORIDE 20 MEQ TABLET PO PRN ×3 (03:21→12:15)
[2020-09-26 08:41] LABS: Basophils % 0.3 % (0.0-0.8); Eosinophils % 0.2 % (0.00-10.9); Hematocrit 32.8 VOL% (42.0-52.0); Immature Granulocytes % 1.4 %; Immature Granulocytes Absolute 0.08 #; Lymphocytes # 0.5 10*3/uL (1.4-4.0); Lymphocytes % 8.3 % (21.2-54.2); Mean Corpuscular HGB Conc 33.5 GM/DL (32-36); Mean Corpuscular Volume 93.7 FL (87-102); Mean Platelet Volume 10.1 FL (9.6-12.0); Neutrophils % 85.8 % (38.7-73.9); Platelet Count 52 T/CUMM (130-400); Red Cell Distribution Width 20.3 % (9.3-17.3); White Blood Count 5.8 T/CUMM (4-12)
[2020-09-26] MEDS: METOPROLOL TARTRATE 25 MG TABLET PO SCH ×2 (08:43→20:32)
[2020-09-26] MEDS: ENOXAPARIN 40 MG/0.4 ML SYRINGE SUBCUT SCH (08:43)
[2020-09-26 08:58] LABS: Albumin 1.6 G/DL (3.4-5.0); Bilirubin,Total 2.2 MG/DL (0.2-1.0); Calcium 9.2 MG/DL (8.5-10.1); Osmolality,Calculated 273.8 MOS/KG (273-304); Potassium 3.4 MMOL/L (3.5-5.1); Total Protein 5.5 G/DL (6.4-8.3)
[2020-09-26] MEDS ORDERED: POTASSIUM CHLORIDE 20 MEQ/15 ML UDCUP PO ONE (15:36)
[2020-09-26] MEDS: DEXAMETHASONE 4 MG TABLET PO SCH (20:32)
[2020-09-26] MEDS: ACETAMINOPHEN 325 MG/10.15 ML UDCUP PO PRN (20:32)
[2020-09-27] MEDS: CEFEPIME 1,000 MG in SODIUM CHLORIDE 0.9% 100 ML IV SCH ×4 (02:32→21:03)
[2020-09-27 06:13] LABS: Albumin 1.7 G/DL (3.4-5.0); Calcium 8.9 MG/DL (8.5-10.1); Potassium 3.6 MMOL/L (3.5-5.1); Total Protein 5.8 G/DL (6.4-8.3)
[2020-09-27 08:41] LABS: Band Neutrophils 22 % (0-10); Lymphocytes 6 % (20-55); Metamyelocytes 1 %; Nucleated Red Blood Cells 0 (0-5); Segmented Neutrophils 68 % (50-85); Total Cells Counted 100
[2020-09-27 08:42] LABS: Anisocytosis Slight; Macrocytosis Slight; Platelet Estimate Decreased
[2020-09-27] MEDS: POTASSIUM CHLORIDE 20 MEQ TABLET PO PRN ×2 (09:38→09:48)
[2020-09-27] MEDS: DEXAMETHASONE 4 MG TABLET PO SCH ×2 (09:38→20:50)
[2020-09-27] MEDS: METOPROLOL TARTRATE 25 MG TABLET PO SCH ×2 (09:38→20:49)
[2020-09-27] MEDS: ENOXAPARIN 40 MG/0.4 ML SYRINGE SUBCUT SCH (09:42)
[2020-09-27] MEDS: ACETAMINOPHEN 325 MG/10.15 ML UDCUP PO PRN (21:04)
[2020-09-28] MEDS: CEFEPIME 1,000 MG in SODIUM CHLORIDE 0.9% 100 ML IV SCH ×4 (02:47→21:26)
[2020-09-28 04:25] LABS: Basophils % 0.5 % (0.0-0.8); Hematocrit 33.9 VOL% (42.0-52.0); Hemoglobin 11.1 GM/DL (14.0-18.0); Immature Granulocytes % 7.1 %; Immature Granulocytes Absolute 0.42 #; Lymphocytes # 0.8 10*3/uL (1.4-4.0); Lymphocytes % 13.2 % (21.2-54.2); Mean Corpuscular HGB Conc 32.7 GM/DL (32-36); Mean Corpuscular Volume 93.6 FL (87-102); Mean Platelet Volume 10.5 FL (9.6-12.0); Monocytes % 5.4 % (1.7-12.7); Neutrophils % 73.8 % (38.7-73.9); Platelet Count 56 T/CUMM (130-400); Red Blood Count 3.62 MC/CUMM (3.8-5.5); Red Cell Distribution Width 19.9 % (9.3-17.3); White Blood Count 5.9 T/CUMM (4-12)
[2020-09-28 04:46] LABS: Calcium 8.7 MG/DL (8.5-10.1); Osmolality,Calculated 273.1 MOS/KG (273-304); Potassium 3.7 MMOL/L (3.5-5.1)
[2020-09-28 07:44] LABS: Band Neutrophils 2 % (0-10); Hypochromasia 1+; Lymphocytes 14 % (20-55); Myelocytes 1 %; Nucleated Red Blood Cells 1 (0-5); Platelet Estimate Decreased; Segmented Neutrophils 83 % (50-85); Total Cells Counted 100
[2020-09-28 07:45] LABS: Polychromasia Slight; Target Cells Slight
[2020-09-28] MEDS: POTASSIUM CHLORIDE 20 MEQ TABLET PO PRN (10:04)
[2020-09-28] MEDS: ENOXAPARIN 40 MG/0.4 ML SYRINGE SUBCUT SCH (10:04)
[2020-09-28] MEDS: DEXAMETHASONE 4 MG TABLET PO SCH ×2 (10:04→21:25)
[2020-09-28] MEDS: METOPROLOL TARTRATE 25 MG TABLET PO SCH ×2 (10:04→21:25)
[2020-09-28] MEDS ORDERED: LIDOCAINE 2% TOP JELLY 20 ML VIAL INTRAURETH ONE (12:06)
[2020-09-28 12:28] LABS: Basophils % 0.4 % (0.0-0.8); Eosinophils % 0.1 % (0.00-10.9); Hemoglobin 11.7 GM/DL (14.0-18.0); Immature Granulocytes % 7.8 %; Immature Granulocytes Absolute 0.58 #; Lymphocytes # 1.2 10*3/uL (1.4-4.0); Lymphocytes % 16.2 % (21.2-54.2); Mean Corpuscular HGB Conc 33.4 GM/DL (32-36); Mean Corpuscular Volume 91.9 FL (87-102); Mean Platelet Volume 10.4 FL (9.6-12.0); Monocytes % 5.6 % (1.7-12.7); NRBC # 0.02 10*3/uL; Neutrophils % 69.9 % (38.7-73.9); Platelet Count 62 T/CUMM (130-400); Red Blood Count 3.81 MC/CUMM (3.8-5.5); Red Cell Distribution Width 19.8 % (9.3-17.3); White Blood Count 7.5 T/CUMM (4-12)
[2020-09-28 12:47] LABS: Anisocytosis 1+; Band Neutrophils 11 % (0-10); Lymphocytes 16 % (20-55); Macrocytosis 1+; Platelet Estimate Decreased; Segmented Neutrophils 67 % (50-85); Total Cells Counted 100
[2020-09-28] MEDS: OXYBUTYNIN 5 MG TABLET PO SCH ×2 (15:33→21:25)
[2020-09-29] MEDS: CEFEPIME 1,000 MG in SODIUM CHLORIDE 0.9% 100 ML IV SCH ×4 (03:07→21:11)
[2020-09-29 06:55] LABS: Basophils # 0.1 10*3/uL (0.0-0.2); Basophils % 0.7 % (0.0-0.8); Eosinophils % 0.1 % (0.00-10.9); Hematocrit 35.2 VOL% (42.0-52.0); Immature Granulocytes % 10.6 %; Lymphocytes # 0.9 10*3/uL (1.4-4.0); Lymphocytes % 12.2 % (21.2-54.2); Mean Corpuscular HGB Conc 34.1 GM/DL (32-36); Mean Corpuscular Volume 92.1 FL (87-102); Mean Platelet Volume 10.7 FL (9.6-12.0); Monocytes % 4.4 % (1.7-12.7); NRBC # 0.04 10*3/uL; Red Blood Count 3.82 MC/CUMM (3.8-5.5); White Blood Count 7.5 T/CUMM (4-12)
[2020-09-29 06:57] LABS: Platelet Count 56 T/CUMM (130-400)
[2020-09-29 07:32] LABS: Calcium 8.8 MG/DL (8.5-10.1); Osmolality,Calculated 268.4 MOS/KG (273-304); Potassium 3.6 MMOL/L (3.5-5.1)
[2020-09-29 07:38] LABS: Lymphocytes 12 % (20-55); Metamyelocytes 1 %; Segmented Neutrophils 80 % (50-85); Total Cells Counted 100
[2020-09-29 07:39] LABS: Ovalocytes Few; Polychromasia Slight
[2020-09-29 07:40] LABS: Platelet Estimate Decreased
[2020-09-29 07:42] LABS: Atypical Lymphocytes 1+
[2020-09-29] MEDS: METOPROLOL TARTRATE 25 MG TABLET PO SCH ×2 (08:27→21:06)
[2020-09-29] MEDS: DEXAMETHASONE 4 MG TABLET PO SCH ×2 (08:27→21:05)
[2020-09-29] MEDS: OXYBUTYNIN 5 MG TABLET PO SCH ×2 (08:27→21:06)
[2020-09-30] MEDS: CEFEPIME 1,000 MG in SODIUM CHLORIDE 0.9% 100 ML IV SCH ×4 (03:50→20:17)
[2020-09-30 06:38] LABS: Basophils % 0.2 % (0.0-0.8); Eosinophils % 0.1 % (0.00-10.9); Hematocrit 35.5 VOL% (42.0-52.0); Immature Granulocytes Absolute 1.35 #; Lymphocytes # 1.3 10*3/uL (1.4-4.0); Lymphocytes % 14.8 % (21.2-54.2); Mean Corpuscular HGB Conc 33.8 GM/DL (32-36); Mean Corpuscular Volume 91.5 FL (87-102); Mean Platelet Volume 11.5 FL (9.6-12.0); Monocytes % 3.5 % (1.7-12.7); NRBC # 0.04 10*3/uL; Neutrophils % 66.4 % (38.7-73.9); Platelet Count 59 T/CUMM (130-400); Red Blood Count 3.88 MC/CUMM (3.8-5.5); Red Cell Distribution Width 20.2 % (9.3-17.3)
[2020-09-30 06:55] LABS: Band Neutrophils 2 % (0-10); Calcium 8.3 MG/DL (8.5-10.1); Hypochromasia 1+; Lymphocytes 12 % (20-55); Microcytosis 1+; Nucleated Red Blood Cells 1 (0-5); Osmolality,Calculated 272.1 MOS/KG (273-304); Platelet Estimate Decreased; Potassium 3.6 MMOL/L (3.5-5.1); Segmented Neutrophils 85 % (50-85); Total Cells Counted 100
[2020-09-30] MEDS: DEXAMETHASONE 4 MG TABLET PO SCH ×2 (09:24→20:19)
[2020-09-30] MEDS: METOPROLOL TARTRATE 25 MG TABLET PO SCH ×2 (09:24→20:19)
[2020-09-30] MEDS: OXYBUTYNIN 5 MG TABLET PO SCH ×2 (09:24→20:19)
[2020-09-30] MEDS: QUEtiapine 25 MG TABLET PO SCH (20:18)
[2020-10-01] MEDS: CEFEPIME 1,000 MG in SODIUM CHLORIDE 0.9% 100 ML IV SCH ×2 (03:07→08:54)
[2020-10-01] MEDS: DEXAMETHASONE 4 MG TABLET PO SCH ×2 (08:53→20:41)
[2020-10-01] MEDS: POTASSIUM CHLORIDE 20 MEQ TABLET PO PRN (08:53)
[2020-10-01] MEDS: METOPROLOL TARTRATE 25 MG TABLET PO SCH ×2 (08:54→20:40)
[2020-10-01] MEDS: OXYBUTYNIN 5 MG TABLET PO SCH ×2 (08:54→20:40)
[2020-10-01] MEDS: cefTRIAXone 2,000 MG in SYRINGE 1 EACH IV SCH (13:25)
[2020-10-01] MEDS: QUEtiapine 25 MG TABLET PO SCH (20:41)
[2020-10-02 05:31] LABS: Basophils % 0.2 % (0.0-0.8); Eosinophils % 0.1 % (0.00-10.9); Hematocrit 36.4 VOL% (42.0-52.0); Hemoglobin 12.4 GM/DL (14.0-18.0); Immature Granulocytes % 13.5 %; Immature Granulocytes Absolute 1.73 #; Lymphocytes # 1.8 10*3/uL (1.4-4.0); Lymphocytes % 14.2 % (21.2-54.2); Mean Corpuscular HGB Conc 34.1 GM/DL (32-36); Mean Corpuscular Volume 91.2 FL (87-102); Mean Platelet Volume 10.9 FL (9.6-12.0); Monocytes % 2.2 % (1.7-12.7); NRBC # 0.06 10*3/uL; Neutrophils % 69.8 % (38.7-73.9); Platelet Count 79 T/CUMM (130-400); Red Blood Count 3.99 MC/CUMM (3.8-5.5); Red Cell Distribution Width 19.9 % (9.3-17.3); White Blood Count 12.9 T/CUMM (4-12)
[2020-10-02 05:50] LABS: Osmolality,Calculated 273.1 MOS/KG (273-304); Potassium 3.8 MMOL/L (3.5-5.1)
[2020-10-02 05:52] LABS: Eosinophils 1 % (0-10); Hypochromasia 1+; Lymphocytes 20 % (20-55); Microcytosis 1+; Nucleated Red Blood Cells 3 (0-5); Platelet Estimate Decreased; Segmented Neutrophils 73 % (50-85); Total Cells Counted 100
[2020-10-02] MEDS: OXYBUTYNIN 5 MG TABLET PO SCH ×2 (09:00→20:31)
[2020-10-02] MEDS: DEXAMETHASONE 4 MG TABLET PO SCH ×2 (09:00→20:31)
[2020-10-02] MEDS: POTASSIUM CHLORIDE 20 MEQ TABLET PO PRN (09:00)
[2020-10-02] MEDS: METOPROLOL TARTRATE 25 MG TABLET PO SCH ×2 (09:00→20:31)
[2020-10-02] MEDS: ACETAMINOPHEN 325 MG/10.15 ML UDCUP PO PRN (09:01)
[2020-10-02] MEDS: cefTRIAXone 2,000 MG in SYRINGE 1 EACH IV SCH (13:15)
[2020-10-02] MEDS: QUEtiapine 25 MG TABLET PO SCH (20:31)
[2020-10-03] MEDS: DEXAMETHASONE 4 MG TABLET PO SCH ×2 (09:15→20:19)
[2020-10-03] MEDS: METOPROLOL TARTRATE 25 MG TABLET PO SCH ×2 (09:15→20:19)
[2020-10-03] MEDS: OXYBUTYNIN 5 MG TABLET PO SCH ×2 (09:19→20:19)
[2020-10-03] MEDS: cefTRIAXone 2,000 MG in SYRINGE 1 EACH IV SCH (13:27)
[2020-10-03] MEDS: QUEtiapine 25 MG TABLET PO SCH (20:19)
[2020-10-03 21:52] LABS: Basophils # 0.1 10*3/uL (0.0-0.2); Basophils % 0.7 % (0.0-0.8); Eosinophils % 0.2 % (0.00-10.9); Hematocrit 39.6 VOL% (42.0-52.0); Hemoglobin 13.2 GM/DL (14.0-18.0); Immature Granulocytes % 10.6 %; Immature Granulocytes Absolute 1.31 #; Mean Corpuscular HGB Conc 33.3 GM/DL (32-36); Mean Corpuscular Volume 93.2 FL (87-102); Mean Platelet Volume 11.5 FL (9.6-12.0); Monocytes % 2.7 % (1.7-12.7); NRBC # 0.11 10*3/uL; Neutrophils % 69.8 % (38.7-73.9); Platelet Count 76 T/CUMM (130-400); Red Blood Count 4.25 MC/CUMM (3.8-5.5); Red Cell Distribution Width 20.3 % (9.3-17.3); White Blood Count 12.4 T/CUMM (4-12)
[2020-10-03 22:05] LABS: PT Patient Result 10.9 SECS (9.8-11.9); Partial Thromboplastin Time 20.4 SECS (23.9-33.8)
[2020-10-03 22:18] LABS: Band Neutrophils 1 % (0-10); Lymphocytes 17 % (20-55); Nucleated Red Blood Cells 1 (0-5); Platelet Estimate Decreased; Segmented Neutrophils 79 % (50-85); Total Cells Counted 100
[2020-10-03 22:19] LABS: Calcium 8.8 MG/DL (8.5-10.1); Osmolality,Calculated 271.4 MOS/KG (273-304); Potassium 4.3 MMOL/L (3.5-5.1)
[2020-10-04 06:36] LABS: Basophils % 0.3 % (0.0-0.8); Eosinophils % 0.2 % (0.00-10.9); Hematocrit 39.9 VOL% (42.0-52.0); Hemoglobin 13.4 GM/DL (14.0-18.0); Immature Granulocytes % 10.6 %; Immature Granulocytes Absolute 1.22 #; Lymphocytes # 1.4 10*3/uL (1.4-4.0); Lymphocytes % 12.5 % (21.2-54.2); Mean Corpuscular HGB Conc 33.6 GM/DL (32-36); Mean Corpuscular Volume 92.8 FL (87-102); Mean Platelet Volume 11.8 FL (9.6-12.0); Monocytes % 3.1 % (1.7-12.7); NRBC # 0.09 10*3/uL; Neutrophils % 73.3 % (38.7-73.9); Platelet Count 105 T/CUMM (130-400); Red Cell Distribution Width 20.5 % (9.3-17.3); White Blood Count 11.6 T/CUMM (4-12)
[2020-10-04 07:11] LABS: Band Neutrophils 1 % (0-10); Lymphocytes 14 % (20-55); Nucleated Red Blood Cells 1 (0-5); Platelet Estimate Adequate; Segmented Neutrophils 78 % (50-85); Total Cells Counted 100
[2020-10-04 07:15] LABS: Calcium 8.9 MG/DL (8.5-10.1); Osmolality,Calculated 271.4 MOS/KG (273-304); Potassium 4.3 MMOL/L (3.5-5.1)
[2020-10-04] MEDS: OXYBUTYNIN 5 MG TABLET PO SCH ×2 (09:13→20:04)
[2020-10-04] MEDS: DEXAMETHASONE 4 MG TABLET PO SCH ×2 (09:13→20:04)
[2020-10-04] MEDS: METOPROLOL TARTRATE 25 MG TABLET PO SCH ×2 (09:13→20:04)
[2020-10-04] MEDS: cefTRIAXone 2,000 MG in SYRINGE 1 EACH IV SCH (13:07)
[2020-10-04] MEDS: QUEtiapine 25 MG TABLET PO SCH (20:05)
[2020-10-05] MEDS: METOPROLOL TARTRATE 25 MG TABLET PO SCH ×2 (09:50→20:09)
[2020-10-05] MEDS: OXYBUTYNIN 5 MG TABLET PO SCH ×2 (09:50→20:09)
[2020-10-05] MEDS: DEXAMETHASONE 4 MG TABLET PO SCH ×2 (09:50→20:09)
[2020-10-05] MEDS: cefTRIAXone 2,000 MG in SYRINGE 1 EACH IV SCH (12:47)
[2020-10-05] MEDS: QUEtiapine 25 MG TABLET PO SCH (20:09)
[2020-10-06] MEDS: DEXAMETHASONE 4 MG TABLET PO SCH ×2 (10:40→21:02)
[2020-10-06] MEDS: OXYBUTYNIN 5 MG TABLET PO SCH ×2 (10:40→21:02)
[2020-10-06] MEDS: METOPROLOL TARTRATE 25 MG TABLET PO SCH ×2 (10:40→21:02)
[2020-10-06] MEDS: cefTRIAXone 2,000 MG in SYRINGE 1 EACH IV SCH (12:33)
[2020-10-06] MEDS: QUEtiapine 25 MG TABLET PO SCH (21:02)
[2020-10-07 05:57] LABS: Basophils # 0.1 10*3/uL (0.0-0.2); Basophils % 0.8 % (0.0-0.8); Eosinophils % 0.1 % (0.00-10.9); Hematocrit 36.2 VOL% (42.0-52.0); Immature Granulocytes % 10.7 %; Immature Granulocytes Absolute 1.21 #; Lymphocytes # 1.6 10*3/uL (1.4-4.0); Lymphocytes % 14.1 % (21.2-54.2); Mean Corpuscular HGB Conc 33.1 GM/DL (32-36); Mean Corpuscular Volume 94.8 FL (87-102); Mean Platelet Volume 10.9 FL (9.6-12.0); NRBC # 0.12 10*3/uL; Neutrophils % 69.3 % (38.7-73.9); Platelet Count 168 T/CUMM (130-400); Red Blood Count 3.82 MC/CUMM (3.8-5.5); Red Cell Distribution Width 20.6 % (9.3-17.3); White Blood Count 11.3 T/CUMM (4-12)
[2020-10-07 06:14] LABS: Calcium 9.1 MG/DL (8.5-10.1); Potassium 3.6 MMOL/L (3.5-5.1)
[2020-10-07 06:28] LABS: Lymphocytes 14 % (20-55); Nucleated Red Blood Cells 1 (0-5); Platelet Estimate Adequate; Segmented Neutrophils 84 % (50-85); Total Cells Counted 100
[2020-10-07 06:29] LABS: Hypochromasia 1+; Microcytosis 1+
[2020-10-07] MEDS: DEXAMETHASONE 4 MG TABLET PO SCH ×2 (09:10→21:46)
[2020-10-07] MEDS: METOPROLOL TARTRATE 25 MG TABLET PO SCH ×2 (09:10→21:46)
[2020-10-07] MEDS: OXYBUTYNIN 5 MG TABLET PO SCH ×2 (09:10→21:47)
[2020-10-07] MEDS: ASPIRIN EC 81 MG TABLET PO SCH (16:54)
[2020-10-07] MEDS: cefTRIAXone 2,000 MG in SYRINGE 1 EACH IV SCH (17:44)
[2020-10-07] MEDS: QUEtiapine 25 MG TABLET PO SCH (21:47)
[2020-10-08] MEDS: DEXAMETHASONE 4 MG TABLET PO SCH (09:23)
[2020-10-08] MEDS: ASPIRIN EC 81 MG TABLET PO SCH (09:23)
[2020-10-08] MEDS: METOPROLOL TARTRATE 25 MG TABLET PO SCH (09:24)
[2020-10-08] MEDS: OXYBUTYNIN 5 MG TABLET PO SCH (09:36)
[2020-10-08 11:14] VITALS: BP 100/68
== END 2020-10-08 11:51 | disposition swing bed (61) | DRG 871 ==
LOC: N.ED 20:18 → SUATTDRO 22:52 → N.EDINP 22:52 → N.CC 09-24 17:26 → N.4E 09-26 14:45
PROVIDERS: ADMIT Internal Medicine; ATTEND Internal Medicine